=== PATIENT | female | born 1970 | race Caucasian/White ===

== ENCOUNTER 2016-11-22 16:45 | Emergency (ER) | payer OTHER ==
[2016-11-22] MEDS ORDERED: Ibuprofen TAB* 600 MG PO ONE (18:04)
--- NOTE | 2016-11-22 19:44 | ED ---
Lower Extremity - HPI Summary HPI Summary: Patient presents with right midfoot pain after dropping a large bottle of saline onto her foot from the top shelf in the bathroom. Initially she thought she was okay, but two hours later she had severe pain and it hurt to walk. She denies previous injury to this foot and has not taken anything for pain. She has mild tingling in the foot. - History of Current Complaint Chief Complaint: EDExtremityLower Stated Complaint: RT FOOT INJURY/NAUSEA Time Seen by Provider: 11/22/16 17:41 Hx Obtained From: Patient Mechanism Of Injury: Blunt Trauma Onset of Pain: Hours Onset/Duration: Still Present Severity Initially: Mild Severity Currently: Severe Pain Intensity: 10 Timing: Constant Location: Is Discrete @ - right mid foot Character Of Pain: Aching, Burning Associated Signs And Symptoms: Positive: Negative Aggravating Factor(s): Ambulation, Movement Alleviating Factor(s): Nothing Able to Bear Weight: Yes - with pain - Allergies/Home Medications Allergies/Adverse Reactions: Allergies Allergy/AdvReac Type Severity Reaction Status Date / Time Gluten Meal Allergy Eyes Verified 11/22/16 17:49 Itchy/Swollen/Red/Watery PMH/Surg Hx/FS Hx/Imm Hx Previously Healthy: Yes Infectious Disease History: Denies: Traveled Outside the [place] in Last 30 Days - Family History Known Family History: Positive: None - Social History Occupation: Employed Full-time Lives: With Family Alcohol Use: None Substance Use Type: Reports: None Smoking Status (MU): Never Smoked Tobacco Review of Systems Positive: Myalgia. Negative: Decreased ROM, Edema Positive: Paresthesia - mild All Other Systems Reviewed And Are Negative: Yes Physical Exam Triage Information Reviewed: Yes Vital Signs On Initial Exam: Initial Vitals Temp Pulse Resp BP Pulse Ox 98.1 F 84 20 114/41 100 11/22/16 16:49 11/22/16 16:49 11/22/16 16:49 11/22/16 16:49 11/22/16 16:49 Vital Signs Reviewed: Yes Appearance: Positive: Well-Appearing, Well-Nourished, Pain Distress Skin: Positive: Warm, Skin Color Reflects Adequate Perfusion, Dry, Soft Head/Face: Positive: Normal Head/Face Inspection Eyes: Positive: EOMI, DEBORAH, Conjunctiva Clear ENT: Positive: Hearing grossly normal Respiratory/Lung Sounds: Positive: Breath Sounds Present Cardiovascular: Positive: RRR Musculoskeletal: Positive: Strength/ROM Intact, Pain @ - TTP dorsum of mid foot Neurological: Positive: Sensory/Motor Intact, Alert, Oriented to Person Place, Time, NV Bundle Intact Distally - mild altered sensation to light touch on dorsum of midfoot, Ataxic Gait - patient favors right foot Psychiatric: Positive: Affect/Mood Appropriate AVPU Assessment: Alert Diagnostics - Vital Signs Vital Signs Temp Pulse Resp BP Pulse Ox 11/22/16 17:46 98.1 F 84 20 114/41 100 11/22/16 16:49 98.1 F 84 20 114/41 100 - Laboratory Lab Statement: Any lab studies that have been ordered have been reviewed, and results considered in the medical decision making process. - Radiology No standard instances Xray Interpretation: No Acute Changes Radiology Interpretation Completed By: ED Physician Lower Extremity Course/Dx - Diagnoses Differential Diagnosis/HQI/PQRI: Positive: Bursitis, Cellulitis, Contusion, Fracture (Closed), Sprain, Strain Provider Diagnoses: Contusion of right foot Discharge - Discharge Plan Condition: Stable Disposition: HOME Patient Education Materials: Foot Contusion (ED) Referrals: Non Staff,Doctor [Primary Care Provider] - Additional Instructions: You can perform activities as tolerated on your foot. Use ibuprofen 400mg three times daily with meals for the next 3-5 days and ice your foot to decrease pain and swelling. Follow-up with your primary care provider if your symptoms persist greater than 7-10 days.
[2016-11-22 19:46] VITALS: BP 102/53
--- NOTE | 2016-11-22 20:07 | RAD ---
Indication: Right foot injury 3 views of the right foot demonstrates no fracture. No other bone or joint abnormality IMPRESSION: No fracture of right foot noted.
== END 2016-11-22 19:45 | disposition home or self-care (01) ==
LOC: ED 16:45
DX: S90.31XA Contusion of right foot, initial encounter (principal); R20.9 Unspecified disturbances of skin sensation; W20.8XXA Other cause of strike by thrown, projected or falling object, initial encounter; Y93.9 Activity, unspecified; Y92.9 Unspecified place or not applicable
CPT/HCPCS: 99282; A9270-GY